=== PATIENT | female | born 1995 | race Caucasian/White ===

== ENCOUNTER 2017-01-21 05:36 | Emergency (ER) | payer BC, OTHER ==
[~2017-01-21] VITALS: Ht 175.3 cm; Wt 99.8 kg
[2017-01-21] MEDS ORDERED: ALBUTEROL SULF 2.5 MG/0.5ML(0.5%) NEB SOLN NEB ONE (05:45)
[2017-01-21] MEDS ORDERED: IPRATROPIUM BROM 0.5 MG/2.5ML INH SOL NEB ONE (05:45)
[2017-01-21] MEDS ORDERED: KETOROLAC TROMETH 30 MG/ML 1ML VIAL IV ONE (07:30)
[2017-01-21 07:34] LABS: Basophils # (auto) 0 uL; Basophils % (auto) 0.2 % (0.0-2.0); CONDITION Y; DEFINITIVE SEE PRINTOUT; Eosinophils # (auto) 0.9 uL; Eosinophils % (auto) 7.2 % (0.0-7.0); Hematocrit 38.1 % (36.0-46.0); Hemoglobin 12.3 g/dL (12.2-16.2); Lymphocytes # (auto) 1.6 uL; Lymphocytes % (auto) 13.3 % (10.0-50.0); Mean Corpuscular Hgb Conc. 32.3 g/dL (32.0-36.0); Mean Corpuscular Volume 77.3 fL (80.0-100.0); Mean Platelet Volume 9.9 fL (7.4-10.4); Monocytes # (auto) 0.6 uL; Monocytes % (auto) 4.8 % (0.0-12.0); Neutrophils # (auto) 9.1 uL; Neutrophils % (auto) 74.5 % (37.0-80.0); Platelet Count (auto) 203 10^3/uL (140-450); White Blood Cell 12.2 10^3/uL (4.4-10.8)
[2017-01-21] MEDS ORDERED: SODIUM CHLORIDE 0.9% 1,000 ML IV ONE (07:57)
[2017-01-21 08:10] LABS: Albumin 3.3 g/dL (3.4-5.0); Bilirubin, Total 0.4 mg/dL (0.2-1.0); Calcium 8.5 mg/dL (8.5-10.1); Potassium 3.5 mmol/L (3.5-5.1); Total Protein 7.3 g/dL (6.4-8.2)
[2017-01-21 09:20] LABS: Urine Bilirubin Negative (Negative); Urine Blood Negative /uL (Negative); Urine Color Yellow (Yellow); Urine Glucose Normal (Normal); Urine Ketone Negative (Negative); Urine Mucus FEW (None Seen); Urine Nitrite Negative (Negative); Urine RBC <1 /hpf (0 - 4); Urine Squamous Epithelial Cell FEW /hpf (<5); Urine Urobilinogen Normal (Negative); Urine pH 6.5 (5.0-8.0)
[2017-01-21 09:44] VITALS: BP 88/54
[2017-01-21] MEDS ORDERED: NITROFURANTOIN (MONO) 100 mg CAP PO ONE (09:45)
== END 2017-01-21 09:53 | disposition home or self-care (01) ==
LOC: ER 05:36
DX: E86.0 Dehydration (principal); N39.0 Urinary tract infection, site not specified; R07.89 Other chest pain; J45.909 Unspecified asthma, uncomplicated
CPT/HCPCS: 36415; 71010; 80053; 81001; 84702; 85025; 94640; 96361; 96374; 99285; J1885; J7030

== ENCOUNTER 2017-09-24 13:23 | Emergency (ER) | payer BC ==
[~2017-09-24] VITALS: Ht 175.3 cm; Wt 92.5 kg
[2017-09-24 19:35] VITALS: BP 145/68
== END 2017-09-24 20:56 | disposition home or self-care (01) ==
LOC: ER 13:23
DX: G24.3 Spasmodic torticollis (principal); J45.909 Unspecified asthma, uncomplicated
CPT/HCPCS: 70450

== ENCOUNTER 2017-10-25 20:24 | Emergency (ER) | payer BC ==
[~2017-10-25] VITALS: Ht 177.8 cm; Wt 88.0 kg
[2017-10-25 23:15] LABS: Basophils % (auto) 0.4 % (0.0-2.0); Eosinophils # (auto) 0 uL; Eosinophils % (auto) 0.3 % (0.0-7.0); Lymphocytes # (auto) 1.4 uL; Monocytes # (auto) 0.8 uL; Red Blood Cells 5.81 10^6/uL (4.0-5.20); Red Cell Distribution Width 18.9 % (11.8-14.3)
[2017-10-25 23:17] LABS: Basophils # (auto) 0 uL; Hematocrit 41.8 % (36.0-46.0); Hemoglobin 13.4 g/dL (12.2-16.2); Lymphocytes % (auto) 10.9 % (10.0-50.0); Mean Corpuscular Volume 71.9 fL (80.0-100.0); Monocytes % (auto) 6.7 % (0.0-12.0); Neutrophils # (auto) 10.2 uL; Neutrophils % (auto) 81.7 % (37.0-80.0); Nucleated Red Blood Cells % 0.2 %; White Blood Cell 12.4 10^3/uL (4.4-10.8)
[2017-10-25 23:18] LABS: Platelet Count (auto) 99 10^3/uL (140-450)
[2017-10-25 23:22] LABS: Urine Bacteria FEW /hpf (None Seen); Urine Blood Negative /uL (Negative); Urine Specific Gravity 1.005 (1.001-1.035); Urine WBC 2 /hpf (0 - 5)
[2017-10-25 23:32] LABS: INR 0.93 (0.9-1.15); Partial Thromboplastin Time 25.6 sec (23.78-33.04)
[2017-10-25 23:35] LABS: Albumin 3.9 g/dL (3.4-5.0); Anion Gap 11 (5-15); Blood Urea Nitrogen 8 mg/dL (7-18); Carbon Dioxide 22 mmol/L (21-32); Chloride 106 mmol/L (98-107); GFR African American 213 mL/min; GFR Non-African American 176 mL/min; Glucose 91 mg/dL (74-106); Potassium 3.9 mmol/L (3.5-5.1); Sodium 139 mmol/L (136-145)
[2017-10-25 23:38] LABS: Alcohol, Urine < 3.0 mg/dL (0-5); Amphetamine Screen, Urine NEGATIVE (NEGATIVE); Barbiturate Scree,Urine NEGATIVE (NEGATIVE); Benzodiazephine Screen, Urine NEGATIVE (NEGATIVE); Cannabinoid Screen, Urine POSITIVE (NEGATIVE); Cocaine Screen, Urine NEGATIVE (NEGATIVE); Opiate Scree,Urine NEGATIVE (NEGATIVE); Phencyclidine Screen, Urine NEGATIVE (NEGATIVE)
[2017-10-25 23:45] LABS: Alanine Aminotransferase 67 U/L (13-56); Alkaline Phosphatase 88 U/L (45-117); Aspartate Aminotransferase 42 U/L (15-37); Bilirubin, Total 0.6 mg/dL (0.2-1.0); Total Protein 7.8 g/dL (6.4-8.2)
[2017-10-26 02:20] VITALS: BP 127/66
[2017-10-26] MEDS ORDERED: LORazepam 0.5 MG TAB PO ONE (03:15)
== END 2017-10-26 03:49 | disposition home or self-care (01) ==
LOC: ER 20:24
DX: R07.89 Other chest pain (principal); F41.9 Anxiety disorder, unspecified; F17.210 Nicotine dependence, cigarettes, uncomplicated; F12.10 Cannabis abuse, uncomplicated
CPT/HCPCS: 36415; 71046; 80053; 80307; 81001; 81025; 84484; 85025; 85610; 85730; 93005

== ENCOUNTER 2018-05-28 19:17 | Emergency (ER) | payer BC ==
[~2018-05-28] VITALS: Ht 172.7 cm; Wt 95.5 kg
[2018-05-28 19:58] VITALS: BP 121/67
== END 2018-05-28 21:56 | disposition home or self-care (01) ==
LOC: ER 19:21
DX: S61.210A Laceration without foreign body of right index finger without damage to nail, initial encounter (principal); J45.909 Unspecified asthma, uncomplicated; F17.210 Nicotine dependence, cigarettes, uncomplicated; F12.10 Cannabis abuse, uncomplicated; W26.9XXA Contact with unspecified sharp object(s), initial encounter; Y93.89 Activity, other specified; Y99.8 Other external cause status; Y92.89 Other specified places as the place of occurrence of the external cause
CPT/HCPCS: 12001